=== PATIENT | female | born 1985 | race African-American/Black ===

== ENCOUNTER 2021-09-29 13:45 | Emergency (ER) | payer OTHER ==
[~2021-09-29] VITALS: Ht 147.3 cm; Wt 45.4 kg
[2021-09-29 14:20] LABS: BASO # 0.1 x10^3/uL (0.0-0.2); BASO % 1 % (0-3); EOS # 0.2 x10^3/uL (0.0-0.7); EOS % 3 % (0-3); HEMATOCRIT 46.9 % (36.0-47.0); HEMOGLOBIN 15.9 g/dL (12.0-15.5); LYMPH # 2.4 x10^3/uL (1.0-4.8); LYMPH % 35 % (24-48); MEAN CORPUSCULAR HEMOGLOBIN 27 pg (25-35); MEAN CORPUSCULAR HGB CONC 34 g/dL (31-37); MEAN CORPUSCULAR VOLUME 78 fL (79-100); MONO # 0.5 x10^3/uL (0.0-1.1); MONO % 7 % (0-9); NEUT # 3.8 x10^3/uL (1.8-7.7); NEUT % 54 % (31-73); PLATELET COUNT 240 x10^3/uL (140-400); RED CELL DISTRIBUTION WIDTH 13.4 % (11.5-14.5); WHITE BLOOD COUNT 7.1 x10^3/uL (4.0-11.0)
--- NOTE | 2021-09-29 14:23 | PHYS DOC ---
Past Medical History Past Surgical History: Other Additional Past Surgical Histo: D&C (ROSA MARIA CANTU APRN) General Adult EDM: Chief Complaint: VAGINAL BLEEDING HPI: HPI: Patient is a 35-year-old female who presents to the emergency department today for vaginal bleeding that started this morning. Patient reports that the bleeding is light red and describes it as a spotting. She states that she is not saturating any pads. Patient reports that her last menstrual period was Nove mber 16. 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 She reports that her OB is Annie Mccarthy at [facility] and has an appointment the first week of October and has not seen her yet. She denies any abdominal pain or cramping, nausea, urinary symptoms, vomiting, diarrhea, fevers. (ROSA MARIA CANTU APRN) Review of Systems: Review of Systems: 14 body systems of the review of systems have been reviewed. See HPI for pertinent positive and negative responses, otherwise all other systems are negative, nonpertinent or noncontributory (ROSA MARIA CANTU APRN) Heart Score: C/O Chest Pain: N/A Risk Factors: Risk Factors: DM, Current or recent (<one month) smoker, HTN, HLP, family history of CAD, obesity. Risk Scores: Score 0 - 3: 2.5% MACE over next 6 weeks - Discharge Home Score 4 - 6: 20.3% MACE over next 6 weeks - Admit for Clinical Observation Score 7 - 10: 72.7% MACE over next 6 weeks - Early Invasive Strategies (ROSA MARIA CANTU APRN) Allergies: Allergies: Allergies Coded Allergies Type Severity Reaction Last Updated Verified No Known Drug Allergies 09/29/21 No (ROSA MARIA CANTU APRN) Physical Exam: PE: Constitutional: Well developed, well nourished, no acute distress, non-toxic appearance. [] HENT: Normocephalic, atraumatic, bilateral external ears normal, oropharynx moist, no oral exudates, nose normal. [] Eyes: PERRL, EOMI, conjunctiva normal, no discharge. [] Neck: Normal range of motion, no tenderness, supple, no stridor. [] Cardiovascular:Heart rate regular rhythm, no murmur [] Lungs & Thorax: Bilateral breath sounds clear to auscultation [] Abdomen: Bowel sounds normal, soft, no tenderness, no masses, no pulsatile masses. [] Skin: Warm, dry, no erythema, no rash. [] Back: No tenderness, no CVA tenderness. [] Extremities: No tenderness, no cyanosis, no clubbing, ROM intact, no edema. [] Neurologic: Alert and oriented X 3, normal motor function, normal sensory function, no focal deficits noted. [] Psychologic: Affect normal, judgement normal, mood normal. [] (ROSA MARIA CANTU APRN) Current Patient Data: Labs: Laboratory Tests Test 09/29/21 13:53 09/29/21 13:55 09/29/21 14:12 Urine Collection Type Unknown Urine Color Yellow Urine Clarity Cloudy Urine pH 5.5 Urine Specific [place] >=1.030 Urine Protein Negative mg/dL Urine Glucose (UA) >=1000 mg/dL Urine Ketones (Stick) Negative mg/dL Urine Blood Large Urine Nitrite Negative Urine Bilirubin Negative Urine Urobilinogen Dipstick 0.2 mg/dL Urine Leukocyte Esterase Negative Urine RBC >40 /HPF Urine WBC 5-10 /HPF Urine Squamous Epithelial Cells Few /LPF Urine Bacteria 0 /HPF Bedside Urine HCG, Qualitative Hcg positive White Blood Count 7.1 x10^3/uL Red Blood Count 6.00 x10^6/uL Hemoglobin 15.9 g/dL Hematocrit 46.9 % Mean Corpuscular Volume 78 fL Mean Corpuscular Hemoglobin 27 pg Mean Corpuscular Hemoglobin Concent 34 g/dL Red Cell Distribution Width 13.4 % Platelet Count 240 x10^3/uL Neutrophils (%) (Auto) 54 % Lymphocytes (%) (Auto) 35 % Monocytes (%) (Auto) 7 % Eosinophils (%) (Auto) 3 % Basophils (%) (Auto) 1 % Neutrophils # (Auto) 3.8 x10^3/uL Lymphocytes # (Auto) 2.4 x10^3/uL Monocytes # (Auto) 0.5 x10^3/uL Eosinophils # (Auto) 0.2 x10^3/uL Basophils # (Auto) 0.1 x10^3/uL Maternal Serum HCG Beta Subunit 336 mIU/mL Sodium Level 136 mmol/L Potassium Level 3.8 mmol/L Chloride Level 98 mmol/L Carbon Dioxide Level 27 mmol/L Anion Gap 11 Blood Urea Nitrogen 11 mg/dL Creatinine 0.7 mg/dL Estimated GFR (Cockcroft-Gault) 94.2 BUN/Creatinine Ratio 16 Glucose Level 299 mg/dL Calcium Level 9.4 mg/dL Total Bilirubin 0.4 mg/dL Aspartate Amino Transf (AST/SGOT) 11 U/L Alanine Aminotransferase (ALT/SGPT) 18 U/L Alkaline Phosphatase 77 U/L Total Protein 9.0 g/dL Albumin 3.8 g/dL Albumin/Globulin Ratio 0.7 Current Medications Medications (Trade) Dose Ordered Sig/Odilon Route PRN Reason Start Time Stop Time Status Last Admin Dose Admin Sodium Chloride 1,000 ml @ 1,000 mls/hr 1X ONCE IV 09/29/21 15:15 09/29/21 16:14 Laboratory Tests Test 09/29/21 13:55 POC Urine HCG, Qualitative Hcg positive (Negative) Vital Signs: Vital Signs Date Time Temp Pulse Resp B/P (MAP) Pulse Ox O2 Delivery O2 Flow Rate FiO2 09/29/21 13:50 98.4 90 16 112/83 (93) 100 Room Air 98.4 (ROSA MARIA CANTU APRN) EKG: EKG: [] (ROSA MARIA CANTU APRN) Radiology/Procedures: Radiology/Procedures: []PROCEDURE: OB TRANSVAG EXAM: Pelvic sonogram. HISTORY: Vaginal bleeding. TECHNIQUE: Transabdominal and transvaginal sonographic imaging the pelvis was performed. COMPARISON: None. FINDINGS: The uterus measures 7 x 4 x 3 mm. There is a single intrauterine gestational sac with yolk sac. The mean sac diameter is 3.4 mm, corresponding with a gestational age of 5 weeks and 0 days. No pole is seen. The maternal ovaries are unremarkable. There is nabothian cyst or small amount of blood products within the cervix. IMPRESSION: 1. Single intrauterine gestational sac with gestational age based on mean sac diameter of 5 weeks and 0 days. No pole is seen at this early gestation. Follow-up with a sonogram in approximately 2 weeks can be performed to assess viability. 2. Nabothian cyst or small amount of blood products within the cervix. Electronically signed by: Yumi Lofton MD (09/29/2021 2:53 PM) [id number] DICTATED and SIGNED BY: YUMI LOFTON MD DATE: 09/29/21 [id number] (ROSA MARIA CANTU APRN) Course & Med Decision Making: Course & Med Decision Making Pertinent Labs and Imaging studies reviewed. (See chart for details) Patient presents to the emergency department for vaginal bleeding/spotting that started this morning during . Work-up in the ER consisted of blood work, urinalysis, wet prep, gonorrhea chlamydia testing, pelvic ultrasound. I attempted to perform a pelvic exam and obtain swabs for STI testing but patient refused and would like to self swab. Patient states that she does not like the speculum. Ultrasound shows single intrauterine gestation measuring approximately 5 weeks consistent with patient's last menstrual period. No pole seen but likely too early in to see a pole. CBC unremarkable. Patient's blood sugar was 299, this was treated with a liter of normal saline. Urinalysis shows no bacteria, no leukocytes, 5-10 white blood cells with few squamous cells likely indicating contamination. Beta hCG level was 336. Patient's wet prep did show bacterial vaginosis and she will be treated for this. Patient's blood type is O+ and therefore does not require RhoGam. Patient advised to follow-up with her OB or return to the emergency department to have her beta hCG level rechecked in 2 days. I discussed with patient all findings and diagnostic testing as well as the need to follow-up with PCP for further evaluation and treatment or return to the ER if any new or worsening symptoms. Strict return precautions were also discussed at length. Patient voiced understanding and agreement with the plan. Patient is hemodynamically stable at the time of disposition. (ROSA MARIA CANTU APRN) Course & Med Decision Making I was the Attending physician on the above date of service of this patient. This patient was evaluated, examined, treated, and dispositioned from the emergency department by the mid-level practitioner. Although I was working at the time , no assistance was requested. Electronically signed, Chloe Kovacs DO (CHLOE KOVACS DO) Grupo Disclaimer: Grupo Disclaimer: This electronic medical record was generated, in whole or in part, using a voice recognition dictation system. (ROSA MARIA CANTU APRN) Departure Departure Impression: Primary Impression: Vaginal bleeding affecting early Additional Impression: Bacterial vaginosis in Disposition: HOME / SELF CARE / HOMELESS Condition: GOOD Patient Instructions: ABCs of , Bacterial Vaginosis, [id number] Additional Instructions: You were seen in the emergency department today for vaginal bleeding and . Your ultrasound showed a single intrauterine gestation measuring approximately 5 weeks. Your beta hCG level was 336. Please return to the emergency department or follow-up with your primary care provider in 2 days to have this lab rechecked. You were positive for bacterial vaginosis which is an overgrowth of her natural bacteria in her vagina. You will be treated with metronidazole. Please start and finish this completely. Increase your fluids. Perform pelvic rest. Return to the emergency department if you develop increased vaginal bleeding where you are saturating more than 1 pad an hour, intractable nausea vomiting, abdominal pain, high fevers refractory to treatment. Lightheadedness or syncope. Scripts Metronidazole (METRONIDAZOLE) 500 Mg Tablet 1 TAB PO BID for 7 Days, #14 TAB 0 Refills Prov: ROSA MARIA CANTU APRN 09/29/21 ROSA MARIA CANTU APRN Sep 29, 2021 14:23 CHLOE KOVACS DO Sep 30, 2021 07:17
[2021-09-29 14:28] LABS: BILIRUBIN,URINE NEGATIVE (NEG); CLARITY,URINE CLOUDY; COLOR,URINE YELLOW; NITRITE,URINE NEGATIVE (NEG); PH,URINE 5.5 (<5.0-8.0); PROTEIN,URINE NEGATIVE (NEG-TRACE); UROBILINOGEN,URINE 0.2 mg/dL (0.2 mg/dL)
[2021-09-29 14:30] LABS: BACTERIA,URINE 0 /HPF (0-FEW); RBC,URINE >40 /HPF (0-2)
[2021-09-29 14:52] LABS: CALCIUM 9.4 mg/dL (8.5-10.1); CREATININE 0.7 mg/dL (0.6-1.0); GFR 94.2; POTASSIUM 3.8 mmol/L (3.5-5.1)
--- NOTE | 2021-09-29 14:56 | RAD ---
EXAM: Pelvic sonogram. HISTORY: Vaginal bleeding. TECHNIQUE: Transabdominal and transvaginal sonographic imaging the pelvis was performed. COMPARISON: None. FINDINGS: The uterus measures 7 x 4 x 3 mm. There is a single intrauterine gestational sac with yolk sac. The mean sac diameter is 3.4 mm, corresponding with a gestational age of 5 weeks and 0 days. No pole is seen. The maternal ovaries are unremarkable. There is nabothian cyst or small amount of blood products within the cervix. IMPRESSION: 1. Single intrauterine gestational sac with gestational age based on mean sac diameter of 5 weeks and 0 days. No pole is seen at this early gestation. Follow-up with a sonogram in approximately 2 weeks can be performed to assess viability. 2. Nabothian cyst or small amount of blood products within the cervix. Electronically signed by: Yumi Salas MD (09/29/2021 2:53 PM) [id number]
[2021-09-29 14:59] LABS: ALBUMIN 3.8 g/dL (3.4-5.0); ALBUMIN/GLOBULIN RATIO 0.7 (1.0-1.7); TOTAL BILIRUBIN 0.4 mg/dL (0.2-1.0)
[2021-09-29] MEDS ORDERED: IV NORMAL SALINE 1000ML BAG 1,000 ML IV ONE (15:15)
[2021-09-29 15:57] VITALS: BP 101/61
[2021-09-29] MEDS ORDERED: METR-34 PO (16:01)
[2021-10-01 21:09] LABS: GC PROBE Negative (Negative)
== END 2021-09-29 16:30 | disposition home or self-care (01) ==
LOC: ER 13:45
DX: O46.91 Antepartum hemorrhage, unspecified, first trimester (principal); N76.0 Acute vaginitis; B96.89 Other specified bacterial agents as the cause of diseases classified elsewhere; Z3A.01 Less than 8 weeks gestation of pregnancy
CPT/HCPCS: 36415; 76817; 80053; 81001; 81025; 84702; 85025; 86900; 86901; 87086; 87491; 87591; 99284; Q0111; 87077; 87186

== ENCOUNTER 2021-10-01 09:12 | Emergency (ER) | payer OTHER ==
[~2021-10-01] VITALS: Ht 149.9 cm; Wt 54.5 kg
[~2021-10-01 09:12] MED LIST: METR-34 PO
[2021-10-01 09:18] VITALS: BP 108/69
--- NOTE | 2021-10-01 09:50 | PHYS DOC ---
Past Medical History Past Surgical History: No Surgical History Additional Past Surgical Histo: D&C (DAVID ABAD ELECTRONIC COMPONENT PROCESSOR) Smoking Status: Never Smoker Alcohol Use: None (DAVID ABAD ELECTRONIC COMPONENT PROCESSOR) General Adult EDM: Chief Complaint: VAGINAL BLEEDING HPI: HPI: Patient is a 35 year old female who presents with was here September 29 with light vaginal bleeding in early was found to be 5 weeks ago. She is here today for a repeat hCG. Patient does have a appointment with her OB Dr. Annie Mccarthy at [facility] on October 15. She states she has not seen her yet for this . Her last menstrual period was August 17. She is G4, P0. She is had a D&C in the past. She is currently on metronidazole for BV. She states the bleeding has remained light. She denies any abdominal pain or passing of tissues. She denies any kind of fever, vomiting or diarrhea. (DAVID ABAD ELECTRONIC COMPONENT PROCESSOR) Review of Systems: Review of Systems: Constitutional: Denies fever or chills. [] Eyes: Denies change in visual acuity. [] HENT: Denies nasal congestion or sore throat. [] Respiratory: Denies cough or shortness of breath. [] Cardiovascular: Denies chest pain or edema. [] GI: Denies abdominal pain, nausea, vomiting, bloody stools or diarrhea. [] : Denies dysuria. + Vaginal bleeding [] Musculoskeletal: Denies back pain or joint pain. [] Integument: Denies rash. [] Neurologic: Denies headache, focal weakness or sensory changes. [] Endocrine: Denies polyuria or polydipsia. [] Lymphatic: Denies swollen glands. [] Psychiatric: Denies depression or anxiety. [] (DAVID ABAD ELECTRONIC COMPONENT PROCESSOR) Heart Score: C/O Chest Pain: No (DAVID ABAD ELECTRONIC COMPONENT PROCESSOR) Allergies: Allergies: Allergies Coded Allergies Type Severity Reaction Last Updated Verified No Known Drug Allergies 10/01/21 No (DAVID ABAD ELECTRONIC COMPONENT PROCESSOR) Physical Exam: PE: Constitutional: Well developed, well nourished, no acute distress, non-toxic appearance. [] HENT: Normocephalic, atraumatic, bilateral external ears normal, oropharynx moist, no oral exudates, nose normal. [] Eyes: PERRLA, EOMI, conjunctiva normal, no discharge. [] Neck: Normal range of motion, no tenderness, supple, no stridor. [] Cardiovascular:Heart rate regular rhythm, no murmur [] Lungs & Thorax: Bilateral breath sounds clear to auscultation [] Abdomen: Bowel sounds normal, soft, no tenderness, no masses, no pulsatile masses. [] Skin: Warm, dry, no erythema, no rash. [] Back: No tenderness, no CVA tenderness. [] Extremities: No tenderness, no cyanosis, no clubbing, ROM intact, no edema. [] Neurologic: Alert and oriented X 3, normal motor function, normal sensory function, no focal deficits noted. [] Psychologic: Affect normal, judgement normal, mood normal. [] Normal physical exam (DAVID ABAD APRN) Current Patient Data: Vital Signs: Vital Signs Date Time Temp Pulse Resp B/P (MAP) Pulse Ox O2 Delivery O2 Flow Rate FiO2 10/01/21 09:18 98.3 106 16 108/69 (82) 98 98.3 (DAVID ABAD APRN) EKG: EKG: [] (DAVID ABAD APRN) Radiology/Procedures: Radiology/Procedures: [] (DAVID ABAD APRN) Course & Med Decision Making: Course & Med Decision Making Pertinent Labs and Imaging studies reviewed. (See chart for details) See HPI. Alert and oriented x4. Ambulatory steady gait. Speaks in full clear sentences. Vital signs within normal limits. Skin pink warm and dry. Abdomen is soft and nontender. She denies any worsening of her symptoms. Ultrasound from September 29 shows: IMPRESSION: 1. Single intrauterine gestational sac with gestational age based on mean sac diameter of 5 weeks and 0 days. No pole is seen at this early gestation. Follow-up with a sonogram in approximately 2 weeks can be performed to assess viability. 2. Nabothian cyst or small amount of blood products within the cervix. On 1228 her hCG was 336. Today it is 308. Patient is likely having a miscarriage. She will need to follow-up on October 15. [] (DAVID ABAD APRN) Course & Med Decision Making I have reviewed the PA/MUNICIPAL MAINTENANCE WORKER's note and plan of care. I was available for consultation as needed during the patient's visit in the emergency department. I agree with the clinical impression, plan, and disposition. (GWEN MEJIA MD) Dragon Disclaimer: Dragon Disclaimer: This electronic medical record was generated, in whole or in part, using a voice recognition dictation system. (DAVID ABAD APRN) Departure Departure Impression: Primary Impression: Threatened miscarriage in early Disposition: HOME / SELF CARE / HOMELESS Condition: STABLE Referrals: NO PCP (PCP) CARMENCITA LOPEZ MD Patient Instructions: Threatened Miscarriage Additional Instructions: Follow-up with your OB provider sooner than October 15. I would call the office and let them know what is going on. If you have begin having severe abdominal pain or going through more than 1 pad an hour or running a fever return to the emergency room. Your HCG is 306 today. DAVID ABAD APRN Oct 01, 2021 09:50 GWEN MEJIA MD Oct 03, 2021 06:18
== END 2021-10-01 10:34 | disposition home or self-care (01) ==
LOC: ER 09:12
DX: O20.0 Threatened abortion (principal); Z3A.01 Less than 8 weeks gestation of pregnancy
CPT/HCPCS: 36415; 84702; 99283

== ENCOUNTER 2021-10-09 10:01 | Emergency (ER) | payer OTHER ==
[~2021-10-09] VITALS: Ht 149.9 cm; Wt 50.8 kg
[2021-10-09 11:33] LABS: BASO % 1 % (0-3); EOS # 0.2 x10^3/uL (0.0-0.7); EOS % 4 % (0-3); HEMATOCRIT 41.9 % (36.0-47.0); HEMOGLOBIN 14.1 g/dL (12.0-15.5); LYMPH % 49 % (24-48); MEAN CORPUSCULAR HEMOGLOBIN 26 pg (25-35); MEAN CORPUSCULAR HGB CONC 34 g/dL (31-37); MEAN CORPUSCULAR VOLUME 78 fL (79-100); MONO # 0.3 x10^3/uL (0.0-1.1); MONO % 7 % (0-9); NEUT # 1.7 x10^3/uL (1.8-7.7); NEUT % 40 % (31-73); PLATELET COUNT 228 x10^3/uL (140-400); RED BLOOD COUNT 5.38 x10^6/uL (3.50-5.40); RED CELL DISTRIBUTION WIDTH 13.5 % (11.5-14.5); WHITE BLOOD COUNT 4.2 x10^3/uL (4.0-11.0)
[2021-10-09 11:54] LABS: CALCIUM 8.7 mg/dL (8.5-10.1); CREATININE 0.8 mg/dL (0.6-1.0); GFR 97.7; POTASSIUM 3.8 mmol/L (3.5-5.1)
[2021-10-09 11:58] LABS: BILIRUBIN,URINE NEGATIVE (NEG); CLARITY,URINE CLEAR; COLOR,URINE YELLOW; NITRITE,URINE NEGATIVE (NEG); PROTEIN,URINE NEGATIVE (NEG-TRACE); UROBILINOGEN,URINE 0.2 mg/dL (0.2 mg/dL)
[2021-10-09 11:58] LABS: ALBUMIN 3.3 g/dL (3.4-5.0); ALBUMIN/GLOBULIN RATIO 0.8 (1.0-1.7); TOTAL BILIRUBIN 0.4 mg/dL (0.2-1.0); TOTAL PROTEIN 7.2 g/dL (6.4-8.2)
[2021-10-09] MEDS ORDERED: IV NORMAL SALINE 1000ML BAG 1,000 ML IV ONE (12:00)
[2021-10-09 12:09] LABS: BACTERIA,URINE FEW /HPF (0-FEW); RBC,URINE OCC /HPF (0-2)
[2021-10-09] MEDS ORDERED: METF500T16 PO ×2 (15:25→15:27)
--- NOTE | 2021-10-09 15:28 | PHYS DOC ---
Past Medical History Past Surgical History: Other Additional Past Surgical Histo: D&C Smoking Status: Never Smoker Alcohol Use: None General Adult EDM: Chief Complaint: HYPERGLYCEMIA HPI: HPI: Patient is a 35 year old female who presents to the emergency department reporting she was called by her [facility] and told her hemoglobin A1c was 12 and her blood sugar was 338 and to come straight to the emergency department for evaluation. Patient reports she had a miscarriage approximately 10 days ago, denies any abdominal pain, vaginal discharge or vaginal bleeding, denies increased urinary frequency, dysuria, or other urinary tract infection type signs and symptoms. Patient denies shortness of breath, increased thirst or increased urination, denies chest pains or chest palpitations. Patient denies visual disturbances, dizziness episodes, syncopal or near syncopal episodes. Patient denies sweatiness or diaphoresis. Patient denies other physical complaints or physical concerns. Patient does report a family history of type 2 diabetes reporting her sister and her father both take pills further diabetes. Review of Systems: Review of Systems: 14 body systems of review of systems have been reviewed. See HPI for pertinent positives and negative responses, otherwise all other systems are negative, nonpertinent or noncontributory. Constitutional: Negative except as outlined in HPI above. Skin: Negative except as outlined in HPI above. Eyes: Negative except as outlined in HPI above. HENT: Negative except as outlined in HPI above. Respiratory: Negative except as outlined in HPI above. Cardiovascular: Negative except as outlined in HPI above. GI: Negative except as outlined in HPI above. : Negative except as outlined in HPI above. Musculoskeletal: Negative except as outlined in HPI above. Integument: Negative except as outlined in HPI above. Neurologic: Negative except as outlined in HPI above. Endocrine: Negative except as outlined in HPI above. Lymphatic: Negative except as outlined in HPI above. Psychiatric: Negative except as outlined in HPI above. Heart Score: C/O Chest Pain: No Risk Factors: Risk Factors: DM, Current or recent (<one month) smoker, HTN, HLP, family history of CAD, obesity. Risk Scores: Score 0 - 3: 2.5% MACE over next 6 weeks - Discharge Home Score 4 - 6: 20.3% MACE over next 6 weeks - Admit for Clinical Observation Score 7 - 10: 72.7% MACE over next 6 weeks - Early Invasive Strategies Current Medications: Current Medications Medications (Trade) Dose Ordered Sig/Odilon Start Time Stop Time Status Last Admin Dose Admin Sodium Chloride 1,000 ml @ 1,000 mls/hr 1X ONCE 10/09/21 12:00 10/09/21 12:59 DC 10/09/21 12:28 1,000 MLS/HR Allergies: Allergies: Allergies Coded Allergies Type Severity Reaction Last Updated Verified No Known Drug Allergies 10/09/21 No Physical Exam: PE: Constitutional: Well developed, well nourished, no acute distress, non-toxic appearance. 35-year-old female in no apparent distress. HENT: Normocephalic, atraumatic. Eyes: Conjunctiva normal, no discharge. Neck: Normal range of motion, no stridor. Cardiovascular: No cyanosis appreciated, distal cap refill less than 2 seconds. Lungs & Thorax: Patient is in no respiratory distress, no audible adventitious lung sounds appreciated. Abdomen: Nontender, no abnormalities noted. Skin: Warm, dry, no erythema, no rash. Back: No tenderness, no deformities. Extremities: No tenderness, no cyanosis, no clubbing, ROM intact, no edema. Neurologic: Alert and oriented X 3, normal motor function, normal sensory function, no focal deficits noted. Psychologic: Affect normal, judgement normal, mood normal. Current Patient Data: Labs: Laboratory Tests Test 10/09/21 11:01 10/09/21 11:10 10/09/21 11:15 10/09/21 11:27 Glucose (Fingerstick) 310 mg/dL (70-99) H White Blood Count 4.2 x10^3/uL (4.0-11.0) Red Blood Count 5.38 x10^6/uL (3.50-5.40) Hemoglobin 14.1 g/dL (12.0-15.5) Hematocrit 41.9 % (36.0-47.0) Mean Corpuscular Volume 78 fL (79-100) L Mean Corpuscular Hemoglobin 26 pg (25-35) Mean Corpuscular Hemoglobin Concent 34 g/dL (31-37) Red Cell Distribution Width 13.5 % (11.5-14.5) Platelet Count 228 x10^3/uL (140-400) Neutrophils (%) (Auto) 40 % (31-73) Lymphocytes (%) (Auto) 49 % (24-48) H Monocytes (%) (Auto) 7 % (0-9) Eosinophils (%) (Auto) 4 % (0-3) H Basophils (%) (Auto) 1 % (0-3) Neutrophils # (Auto) 1.7 x10^3/uL (1.8-7.7) L Lymphocytes # (Auto) 2.0 x10^3/uL (1.0-4.8) Monocytes # (Auto) 0.3 x10^3/uL (0.0-1.1) Eosinophils # (Auto) 0.2 x10^3/uL (0.0-0.7) Basophils # (Auto) 0.0 x10^3/uL (0.0-0.2) Acetone Level Neg (NEG) Urine Collection Type Unknown Urine Color Yellow Urine Clarity Clear Urine pH 6.0 (<5.0-8.0) Urine Specific Randall 1.025 (1.000-1.030) Urine Protein Negative mg/dL (NEG-TRACE) Urine Glucose (UA) >=1000 mg/dL (NEG) Urine Ketones (Stick) Trace mg/dL (NEG) Urine Blood Trace (NEG) Urine Nitrite Negative (NEG) Urine Bilirubin Negative (NEG) Urine Urobilinogen Dipstick 0.2 mg/dL (0.2 mg/dL) Urine Leukocyte Esterase Negative (NEG) Urine RBC Occ /HPF (0-2) Urine WBC 1-4 /HPF (0-4) Urine Squamous Epithelial Cells Mod /LPF Urine Bacteria Few /HPF (0-FEW) POC Urine HCG, Qualitative Hcg negative (Negative) Test 10/09/21 11:29 10/09/21 14:12 Sodium Level 137 mmol/L (136-145) Potassium Level 3.8 mmol/L (3.5-5.1) Chloride Level 102 mmol/L (98-107) Carbon Dioxide Level 26 mmol/L (21-32) Anion Gap 9 (6-14) Blood Urea Nitrogen 13 mg/dL (7-20) Creatinine 0.8 mg/dL (0.6-1.0) Estimated GFR (Cockcroft-Gault) 97.7 BUN/Creatinine Ratio 16 (6-20) Glucose Level 308 mg/dL (70-99) H Calcium Level 8.7 mg/dL (8.5-10.1) Total Bilirubin 0.4 mg/dL (0.2-1.0) Aspartate Amino Transferase (AST) 16 U/L (15-37) Alanine Aminotransferase (ALT) 21 U/L (14-59) Alkaline Phosphatase 57 U/L (46-116) Total Protein 7.2 g/dL (6.4-8.2) Albumin 3.3 g/dL (3.4-5.0) L Albumin/Globulin Ratio 0.8 (1.0-1.7) L Glucose (Fingerstick) 245 mg/dL (70-99) H Laboratory Tests 10/09/21 11:10 Laboratory Tests 10/09/21 11:29 Vital Signs: Vital Signs Date Time Temp Pulse Resp B/P (MAP) Pulse Ox O2 Delivery O2 Flow Rate FiO2 10/09/21 14:00 68 18 128/85 (99) 98 Room Air 10/09/21 10:42 98.4 98.4 EKG: EKG: [] Radiology/Procedures: Radiology/Procedures: [] Course & Med Decision Making: Course & Med Decision Making Pertinent Labs and Imaging studies reviewed. (See chart for details) 35-year-old female, vital signs reviewed, presents emergency department concerning elevated hemoglobin A1c and serum blood sugar per labs done at her [facility] earlier this month. Patient physical examination is unremarkable, bedside glucose 310, will order CBC, CMP, IV normal saline, urinalysis assay. Will reevaluate after period of time Repeat bedside fingerstick blood sugar 245, patient remains in no apparent distress, patient's labs unremarkable, the patient is not in DKA, related to patient's elevated blood sugar and reported A1c of 12 will discharged home with prescription of metformin 500 mg to take daily, strict follow-up with primary care provider this week, call Monday for an appointment. Return to ER precautions or concerns. Patient gave verbal understanding of and is amenable to ED discharge planning. Discussed with the patient all findings and diagnostic testing as well as the need to follow-up with their primary care provider for further evaluation and treatment or return to the ED if any new or worsening symptoms. Strict return precautions were also discussed at length, the patient voiced understanding and agreement with the discharge planning. The patient was nontoxic in appearance, in no apparent distress, and hemodynamically stable at the time of disposition. Grupo Disclaimer: Grupo Disclaimer: This electronic medical record was generated, in whole or in part, using a voice recognition dictation system. Departure Departure Impression: Primary Impression: Hyperglycemia Disposition: HOME / SELF CARE / HOMELESS Condition: GOOD Referrals: NO PCP (PCP) Patient Instructions: Diabetes Meal Planning Guide, Diabetes and Foot Care, Diabetes, FAQs, Diabetes, Type 2, Am I at Risk, Diabetic Ketoacidosis, Diets for Diabetes, Food Labeling, How to Avoid Diabetes Problems Additional Instructions: You were seen today in the emergency department for elevated blood sugar. You had reported your hemoglobin A1c was equal to 12 your blood sugar was 310 today in the emergency department, you are treated with 1 L normal saline, your blood sugar did reduce to 245. As we discussed I am starting you on metformin 500 mg tablets you will take daily. Please take 1 once a day, I am also providing you a list of healthcare providers, please choose a healthcare provider to establish primary care with to manage your diabetes/high blood sugar problems. Please return to the emergency department for worsening symptoms or other concerns. Thank you for visiting our Emergency Department. It was a pleasure taking care of you today in the emergency department and we appreciate you trusting us with your care. If any additional problems come up don't hesitate to return to visit us. Please follow up with your primary care provider so they can plan additional care if needed and know about the problem that you had. If symptoms worsen come back to the Emergency Department. Any concerning symptoms that start such as chest pain, shortness of air, weakness or numbness on one side of the body, running high fevers or any other concerning symptoms return to the ER. Mak [facility] [address] [place] [address] [facility] [address] [place] [address] [facility] [address] [facility] [place] [address] [facility] [address] [place] [address] [facility] [address] [place] [address] [facility] [address] [place] [address] Danae Ruth [address] [place] [address] Jumio Kori [address] [place] [address] [address] [place] [address] [facility] [address] [place] [address] EMERGENCY DEPARTMENT GENERAL DISCHARGE INSTRUCTIONS Thank you for coming to [facility] Emergency Department (ED) toda y and trusting us with you care. We trust that you had a positive experience in our Emergency Department. If you wish to speak to the department management, you may call the Director at [phone]. YOUR FOLLOW UP INSTRUCTIONS ARE FOLLOWS: 1. Do you have a private Doctor? If you do not have a private doctor, please ask for a resource list of physicians or clinics that may be able to assist you with follow up care. 2. The Emergency Physicain has interpreted your x-rays. The X-Ray specialist will also review them. If there is a change in the findings, you will be notified in 48 hours when at all possible. 3. A lab test or culture has been done, your results will be reviewed and you will be notified if you need a change in treatment. ADDITIONAL INSTRUCTIONS AND INFORMATION: 1. Your care today has been supervised by a physician who is specially trained in emergency care. Many problems require more than one evaluation for a complete diagnosis and treatment. We recommend that you schedule your follow up appointment as recommended to ensure complete treatment of you illness or injury. If you are unable to obtain follow up care and continue to have a problem, or if your condition worsens, we recommend that you return to the ED. 2. We are not able to safely determine your condition over the phone nor are we able to give sound medical advice over the phone. For these safety reasons, if you call for medical advice we will ask you to come to the ED for further evaluation. 3. If you have any questions regarding these discharge instructions please call the ED at [phone]. SAFETY INFORMATION: In the interest of safety, wellness, and injury prevention; we encourage you to wear your sealbelt, if you smoke; quite smoking, and we encourage family to use a protective helmet for bicycling and other sporting events that present an increased risk for head injury. IF YOUR SYMPTOMS WORSEN OR NEW SYMPTOMS DEVELOP, OR YOU HAVE CONCERNS ABOUT YOUR CONDITION; OR IF YOUR CONDITION WORSENS WHILE YOU ARE WAITING FOR YOUR FOLLOW UP APPOINTME NT; EITHER CONTACT YOUR PRIMARY CARE DOCTOR, THE PHYSICIAN WHOSE NAME AND NUMBER YOU WERE GIVEN, OR RETURN TO THE ED IMMEDIATELY. Scripts Metformin Hcl (METFORMIN HCL) 500 Mg Tablet 500 MG PO DAILY for ANTI-DIABETIC, #30 TAB 0 Refills Prov: CARMENCITA FIELDS APRN 10/09/21 CARMENCITA FIELDS APRN Oct 09, 2021 15:28
[2021-10-09 15:30] VITALS: BP 123/69
== END 2021-10-09 15:48 | disposition home or self-care (01) ==
LOC: ER 10:01
DX: R73.9 Hyperglycemia, unspecified (principal)
CPT/HCPCS: 36415; 80053; 81001; 81025; 82010; 82962; 85025; 96360; 99285; J7030